=== PATIENT | male | born 1985 | race African-American/Black ===

== ENCOUNTER 2017-02-04 01:38 | Emergency (ER) | payer OTHER | END 2017-02-04 03:20 | disposition home or self-care (01) | LOC: D.ER 01:38 | DX: S20.229A Contusion of unspecified back wall of thorax, initial encounter (principal); V49.9XXA Car occupant (driver) (passenger) injured in unspecified traffic accident, initial encounter; Y93.89 Activity, other specified; Y92.410 Unspecified street and highway as the place of occurrence of the external cause; S60.211A Contusion of right wrist, initial encounter; I10 Essential (primary) hypertension ==

== ENCOUNTER → 2017-11-13 09:44 | Outpatient (CLI) | payer OTHER | END | disposition home or self-care (01) | LOC: D.MRI 11-09 16:00 | DX: M54.2 Cervicalgia (principal) ==